=== PATIENT | male | born 1970 | race Caucasian/White ===

== ENCOUNTER 2016-07-22 13:34 | Emergency (ER) | payer OTHER ==
[~2016-07-22] VITALS: Ht 172.7 cm; Wt 73.9 kg
--- NOTE | ~2016-07-22 | EKG ---
[address] [address] ELECTROCARDIOGRAM REPORT Name: JARED LAYNE MARION Room #: [id number] Admission: 07/22/16 Attend Phys: Discharge: 07/22/16 Date of : 66 Report #: [id number] THIS REPORT FOR: //name// [facility] ED Test Date: 2016-07-22 Test Time: 14:02:52 Pat Name: JARED LAYNE Department: Room: Gender: [employer]: Serina DAWSON : 1970 Requested By: Apoorva Batista Order Number: [id number] MD: Tarun Green Measurements Intervals [place] Rate: 107 P: 67 ME: 139 QRS: 88 QRSD: 84 T: 68 QT: 307 QTc: 410 Interpretive Statements Sinus tachycardia Compared to ECG 06/23/2016 02:50:06 No significant changes Electronically Signed On 07-22-2016 22:04:04 CDT by Tarun Green [email or web address] <ELECTRONICALLY SIGNED> By: Tarun Green MD 07/22/16 2204 1402 01 Tarun Green MD /ABBY
[~2016-07-22 13:34] MED LIST: ACCUNEB SO1.25 MG/1 INH; BENTYL 20 MG TA20 M1 PO; COLACE100 MG PO; FLEXERIL; HYDROCODONE-AP1 EAC6 PO; NAPROSYN500 MG PO; OXYCODONE HCL 55 MG PO; PHENERGAN 25 MG25 M1 PO; PREDNISONE 20 M20 MG PO; PRILOSEC 20 MG20 MG PO; SYMBICORT160 MCG/4. INH; TYLENOL325 MG PO; VENTOLIN HFA 1818 GM INH; VIBRAMYCIN 100100 MG PO; ZYVOX600 MG PO
[2016-07-22 14:06] LABS: ABSOLUTE NEUTROPHILS 12.1 thou/uL (1.4-8.2); BASOPHILS 0.5 % (0.0-2.0); EOSINOPHILS 0.5 % (0.0-3.0); HEMATOCRIT 42.7 % (42.0-52.0); HEMOGLOBIN 14.8 gm/dL (14.0-18.0); LYMPHOCYTES 11.9 % (24.0-44.0); MCH 30.2 pg (26.0-34.0); MCHC 34.6 g/dL (28.0-37.0); MCV 87.3 fL (80.0-100.0); MONOCYTES 6.8 % (1.0-8.0); PLATELET COUNT 307 thou/uL (150-400); POLYS 80.3 % (36.0-66.0); RDW 14.8 % (10.5-14.5)
[2016-07-22 14:07] LABS: MANUAL DIFF NO
[2016-07-22 14:18] LABS: ANION GAP 9 mmol/L (7-16); BUN 12 mg/dL (7-18); CALCIUM 8.7 mg/dL (8.5-10.1); CHLORIDE 104 mmol/L (98-107); CO2 22 mmol/L (21-32); GLUCOSE 93 mg/dL (74-106); SODIUM 135 mmol/L (136-145)
[2016-07-22 14:20] LABS: POTASSIUM 4.1 mmol/L (3.5-5.1)
[2016-07-22 14:29] LABS: ALBUMIN 3.4 g/dL (3.4-5.0); ALKALINE PHOSPHATASE 68 U/L (46-116); NT-PRO BRAIN NAT PEPTIDE 54 pg/mL (<300); SGOT 29 U/L (15-37); SGPT 21 U/L (30-65); TOTAL BILIRUBIN 0.8 mg/dL (<0.1-1.0); TOTAL PROTEIN 7.2 g/dL (6.4-8.2); TROPONIN-I < 0.04 ng/mL (<0.04-0.07)
[2016-07-22] MEDS ORDERED: ZPAK PO (16:10)
[2016-07-22] MEDS ORDERED: NORCO 5-325 TA1 EACH PO (16:10)
== END 2016-07-22 16:59 | disposition home or self-care (01) ==
LOC: ER 13:34
PROVIDERS: Nurse Practitioner Family
DX: J18.9 Pneumonia, unspecified organism (principal); K02.9 Dental caries, unspecified; J44.9 Chronic obstructive pulmonary disease, unspecified; F17.210 Nicotine dependence, cigarettes, uncomplicated; F12.10 Cannabis abuse, uncomplicated; Z98.890 Other specified postprocedural states; Z88.1 Allergy status to other antibiotic agents; Z88.6 Allergy status to analgesic agent; Z88.8 Allergy status to other drugs, medicaments and biological substances

== ENCOUNTER 2017-06-23 18:58 | Emergency (ER) | payer OTHER ==
[~2017-06-23] VITALS: Ht 172.7 cm; Wt 65.8 kg
[~2017-06-23 18:58] MED LIST changes: +NORCO 5-325 TA1 EACH PO; +ZPAK PO
[2017-06-23 20:14] LABS: URINE BILIRUBIN NEGATIVE (Negative); URINE BLOOD NEGATIVE (Negative); URINE CLARITY CLEAR; URINE COLOR YELLOW; URINE GLUCOSE-RANDOM* NEGATIVE (Negative); URINE KETONES NEGATIVE (Negative); URINE LEUKOCYTES-REFLEX NEGATIVE (Negative); URINE NITRITE-REFLEX NEGATIVE (Negative); URINE PROTEIN (DIPSTICK) NEGATIVE (Negative); URINE SPECIFIC GRAVITY <= 1.005 (1.005-1.035); URINE UROBILINOGEN 0.2 E.U./dl (0.2-1.0)
[2017-06-23 20:39] LABS: CREATININE 1.1 mg/dL (0.7-1.3); POTASSIUM 3.1 mmol/L (3.5-5.1)
[2017-06-23 20:44] LABS: ALBUMIN 3.8 g/dL (3.4-5.0); TOTAL BILIRUBIN 0.5 mg/dL (<0.1-1.0); TOTAL PROTEIN 7.4 g/dL (6.4-8.2)
== END 2017-06-23 21:16 | disposition home or self-care (01) ==
LOC: ER 18:58
PROVIDERS: Emergency Medicine
DX: R60.0 Localized edema (principal); J44.9 Chronic obstructive pulmonary disease, unspecified; E87.6 Hypokalemia; F17.210 Nicotine dependence, cigarettes, uncomplicated; Z88.2 Allergy status to sulfonamides

== ENCOUNTER 2020-10-19 10:21 | Emergency (ER) | payer OTHER ==
[~2020-10-19] VITALS: Ht 172.7 cm; Wt 68.0 kg
== END 2020-10-19 11:10 | disposition home or self-care (01) ==
LOC: ER 10:21
PROVIDERS: Student in an Organized Health Care Education/Training Program
DX: Z20.822 Contact with and (suspected) exposure to COVID-19 (principal); J44.9 Chronic obstructive pulmonary disease, unspecified; F17.210 Nicotine dependence, cigarettes, uncomplicated; Z98.890 Other specified postprocedural states; Z88.1 Allergy status to other antibiotic agents; Z88.2 Allergy status to sulfonamides